=== PATIENT | male | born 1965 | race Caucasian/White ===

== ENCOUNTER 2020-10-15 09:28 | Emergency (ER) | payer BC ==
[~2020-10-15] VITALS: Ht 167.6 cm; Wt 80.0 kg
[2020-10-15] MEDS ORDERED: ACETAMINOPHEN 325MG TABLET PO STA (09:50)
[2020-10-15] MEDS ORDERED: PIPERACILLIN/TAZ 3.375G PREMIX 50 ML IV ONE (10:00)
[2020-10-15 11:02] LABS: BASOPHILS % 0.2 % (0.0-2.0); HEMATOCRIT. 45.2 % (42.0-52.0); HEMOGLOBIN. 15.3 g/dL (14.0-18.0); MEAN CORPUSCULAR HEMOGLOBIN 28.3 pg (28.0-32.0); MEAN CORPUSCULAR VOLUME 83.5 fL (80.0-94.0); MEAN PLATELET VOLUME 8.3 fl (7.4-10.4); MONOCYTES % 4.1 % (2.0-8.0); NEUTROPHILS % 80.7 % (40.0-76.0); PLATELET 211 x1000/uL (130-400); RED BLOOD CELL COUNT 5.42 mill/uL (4.7-6.1); RED CELL DISTRIBUTION WIDTH 13.8 % (11.6-14.6)
[2020-10-15 11:05] LABS: PROTHROMBIN TIME 10.8 sec (9.6-11.0)
[2020-10-15 11:09] LABS: CHLORIDE 102 mEq/L (98-107)
[2020-10-15] MEDS ORDERED: CEFTRIAXONE SODIUM 1 G/VIAL IM NR (11:30)
[2020-10-15] MEDS ORDERED: LIDOCAINE HCL 1% 20ML VIAL (Pyxis) INJ INFIL NR (11:30)
[2020-10-15 11:57] VITALS: BP 122/75
[2020-10-15 12:36] LABS: CLARITY URINE CLEAR (CLEAR); COLOR URINE DARK YELLOW (YELLOW); KETONES URINE 1+ (NEGATIVE); LEUKOCYTE ESTERASE URINE NEGATIVE (NEGATIVE); NITRITE URINE NEGATIVE (NEGATIVE); OCCULT BLOOD URINE NEGATIVE (NEGATIVE); PH URINE 5.5 (4.5-8.0); PROTEIN URINE 1+ (NEGATIVE); SPECIFIC GRAVITY URINE 1.024 (1.005-1.030)
== END 2020-10-15 12:00 | disposition home or self-care (01) ==
LOC: ER 09:51 → EDBEDREQ 10:57 → EDBEDREQTM 10:57 → EDBEDREQSVC 10:57 → ER 12:00 → CANBEDREQ 18:48
DX: J18.9 Pneumonia, unspecified organism (principal); Z20.828 Contact with and (suspected) exposure to other viral communicable diseases; M54.6 Pain in thoracic spine
CPT/HCPCS: 36415; 71045; 80053; 81003; 82728; 83605; 84145; 84484; 85025; 85610; 87040; 87086; 87635; 96372; 99285; J0696; J3490

== ENCOUNTER 2020-11-01 14:29 | Emergency (ER) | payer BC ==
[~2020-11-01] VITALS: Ht 165.1 cm; Wt 81.0 kg
[2020-11-01 16:10] LABS: BASOPHILS % 0.4 % (0.0-2.0); HEMATOCRIT. 42.8 % (42.0-52.0); HEMOGLOBIN. 14.4 g/dL (14.0-18.0); MEAN CORPUSCULAR HEMOGLOBIN 28.2 pg (28.0-32.0); MEAN CORPUSCULAR VOLUME 83.8 fL (80.0-94.0); MONOCYTES % 3.9 % (2.0-8.0); NEUTROPHILS % 86.7 % (40.0-76.0); PLATELET 300 x1000/uL (130-400); RED BLOOD CELL COUNT 5.11 mill/uL (4.7-6.1); RED CELL DISTRIBUTION WIDTH 14.6 % (11.6-14.6)
[2020-11-01 16:11] LABS: CHLORIDE 107 mEq/L (98-107)
[2020-11-01 16:43] LABS: CLARITY URINE CLEAR (CLEAR); COLOR URINE YELLOW (YELLOW); KETONES URINE NEGATIVE (NEGATIVE); LEUKOCYTE ESTERASE URINE NEGATIVE (NEGATIVE); NITRITE URINE NEGATIVE (NEGATIVE); OCCULT BLOOD URINE 3+ (NEGATIVE); PH URINE 5.5 (4.5-8.0); PROTEIN URINE NEGATIVE (NEGATIVE); SPECIFIC GRAVITY URINE 1.023 (1.005-1.030); UROBILINOGEN URINE 0.2 E.U./dL (0.2-1.0)
[2020-11-01 17:52] VITALS: BP 150/78
== END 2020-11-01 17:45 | disposition home or self-care (01) ==
LOC: ER 14:29
DX: R33.9 Retention of urine, unspecified (principal)
CPT/HCPCS: 36415; 80053; 81003; 85025; 99283; A4315

== ENCOUNTER 2020-11-04 09:13 | Emergency (ER) | payer SELFPAY ==
[~2020-11-04] VITALS: Ht 165.1 cm; Wt 82.0 kg
[2020-11-04 10:47] LABS: BASOPHILS % 0.3 % (0.0-2.0); EOSINOPHILS % 1.4 % (0.0-5.0); HEMATOCRIT. 42.1 % (42.0-52.0); HEMOGLOBIN. 14.5 g/dL (14.0-18.0); LYMPHOCYTES % 23.7 % (20.0-50.0); MEAN CORPUSCULAR VOLUME 84.4 fL (80.0-94.0); MEAN PLATELET VOLUME 8.6 fl (7.4-10.4); MONOCYTES % 6.3 % (2.0-8.0); NEUTROPHILS % 68.3 % (40.0-76.0); PLATELET 222 x1000/uL (130-400); RED BLOOD CELL COUNT 4.99 mill/uL (4.7-6.1); RED CELL DISTRIBUTION WIDTH 14.8 % (11.6-14.6)
[2020-11-04 10:54] LABS: CHLORIDE 106 mEq/L (98-107)
[2020-11-04 12:18] LABS: CLARITY URINE CLOUDY (CLEAR); COLOR URINE RED (YELLOW); KETONES URINE 1+ (NEGATIVE); LEUKOCYTE ESTERASE URINE 2+ (NEGATIVE); NITRITE URINE NEGATIVE (NEGATIVE); OCCULT BLOOD URINE 3+ (NEGATIVE); PROTEIN URINE 3+ (NEGATIVE); SPECIFIC GRAVITY URINE 1.008 (1.005-1.030); UROBILINOGEN URINE 0.2 E.U./dL (0.2-1.0)
[2020-11-04] MEDS ORDERED: SULFAMETHOXAZOLE/TRIMETHOPRIM 800/160MG TABLET PO NR (13:15)
[2020-11-04 13:31] VITALS: BP 141/89
== END 2020-11-04 13:31 | disposition home or self-care (01) ==
LOC: ER 09:13
DX: R33.9 Retention of urine, unspecified (principal); N39.0 Urinary tract infection, site not specified; R03.0 Elevated blood-pressure reading, without diagnosis of hypertension
CPT/HCPCS: 36415; 51702; 80048; 81003; 85025; 99284

== ENCOUNTER 2020-11-16 07:55 | Emergency (ER) | payer BC ==
[~2020-11-16] VITALS: Ht 165.1 cm; Wt 76.0 kg
[2020-11-16 10:10] VITALS: BP 136/85
== END 2020-11-16 10:41 | disposition home or self-care (01) ==
LOC: ER 08:31
DX: Z46.6 Encounter for fitting and adjustment of urinary device (principal); R33.9 Retention of urine, unspecified
CPT/HCPCS: 99281

== ENCOUNTER 2020-11-17 09:09 | Emergency (ER) | payer BC ==
[~2020-11-17] VITALS: Ht 165.1 cm; Wt 76.0 kg
[2020-11-17 11:23] VITALS: BP 132/88
== END 2020-11-17 11:24 | disposition home or self-care (01) ==
LOC: ER 09:09
DX: R33.9 Retention of urine, unspecified (principal)
CPT/HCPCS: 51702; 99284; A4315

== ENCOUNTER 2020-12-10 03:32 | Emergency (ER) | payer BC ==
[~2020-12-10] VITALS: Ht 165.1 cm; Wt 73.0 kg
[2020-12-10 03:33] VITALS: BP 135/93
== END 2020-12-10 04:40 | disposition home or self-care (01) ==
LOC: ER 03:32
DX: R33.9 Retention of urine, unspecified (principal)
CPT/HCPCS: 93005; 99281

== ENCOUNTER 2021-06-18 13:59 | Emergency (ER) | payer BC ==
[~2021-06-18] VITALS: Ht 165.1 cm; Wt 82.0 kg
[2021-06-18] MEDS ORDERED: KETOROLAC 60MG/2ML VIAL IM ONE (16:15)
[2021-06-18 16:43] VITALS: BP 140/89
[2021-06-18] MEDS ORDERED: IBUP-2029 MT (17:26)
== END 2021-06-18 17:56 | disposition home or self-care (01) ==
LOC: ER 13:59
DX: M79.18 Myalgia, other site (principal); Z87.01 Personal history of pneumonia (recurrent)
CPT/HCPCS: 71045; 96372; 99283; J1885

== ENCOUNTER 2025-01-28 23:08 | Emergency (ER) | payer BC ==
[~2025-01-28] VITALS: Ht 165.1 cm; Wt 84.0 kg
[~2025-01-28 23:08] MED LIST: IBUP-2029 MT
[2025-01-28 23:34] VITALS: O2SAT 100
[2025-01-29] MEDS: KETOROLAC 15MG/ML VIAL IM ONE (06:09)
[2025-01-29 11:34] VITALS: BP 128/74; PULSE 91; RESP 18; TEMP 36.9; O2SAT 100
== END 2025-01-29 12:05 | disposition left against medical advice (07) ==
LOC: ER 01-29 00:04 → EDBEDREQTM 01-29 04:22 → ER 01-29 12:05
DX: R33.9 Retention of urine, unspecified (principal)
CPT/HCPCS: 99285; 51702; 96372; J1885